=== PATIENT | male | born 1965 | race American Indian/Alaskan Native ===

== ENCOUNTER 2016-09-13 13:09 | Emergency (ER) | payer SELFPAY ==
[2016-09-13 13:25] VITALS: BP 153/100
[2016-09-13 14:10] LABS: Bacteria,Urine 1+ /HPF (Negative); Bilirubin,Urine NEG (Negative); Blood,Urine SM (Negative); Ketones,Urine NEG (Negative); Leukocyte Esterase,Urine NEG (Negative); Mucus,Urine FEW /HPF; Nitrite,Urine NEG (Negative); Protein,Urine <15 mg/dL mg/dL (Negative); Urobilinogen,Urine < 2.0 mg/dL (<2.0)
--- NOTE | 2016-09-13 14:25 | Cat Scan Report ---
FINAL REPORT PROCEDURE: CT HEAD/BRAIN WO CON TECHNIQUE: Computerized tomography of the head was performed without contrast material. HISTORY: hx. of spinocerebellar ataxia and c/o abd. pain COMPARISON: No prior studies are available for comparison. FINDINGS: Mild changes of chronic sinusitis are seen. Mastoid air cells are clear. Cerumen is seen in the right external auditory canal. No calvarial fracture is seen. Cerebral ventricles are normal in size. No acute intracranial hemorrhage or mass effect is seen. No CVA is seen. IMPRESSION: No intracranial abnormality is seen.
[2016-09-13 14:26] LABS: Basophils % (Auto) 0.5 % (0.0-1.8); Eosinophils % (Auto) 0.7 % (0.0-4.3); Hematocrit 42.3 % (35.5-45.6); Hemoglobin 14.4 gm/dl (11.8-15.2); Mean Corpuscular HGB Conc 34 % (32-34); Mean Corpuscular Hemoglobin 29 pg (28-32); Mean Corpuscular Volume 85 fl (84-94); Platelet Count 260 K/mm3 (140-440); Red Blood Count 4.95 M/mm3 (3.65-5.03); Red Cell Distribution Width 13.5 % (13.2-15.2)
[2016-09-13 14:40] LABS: Alanine Aminotransferase 41 units/L (7-56); Albumin 4.3 g/dL (3.9-5); Albumin/Globulin Ratio 1.3 %; Alkaline Phosphatase 59 units/L (35-129); Anion Gap 19 mmol/L; BUN/Creatinine Ratio 11.42; Blood Urea Nitrogen 8 mg/dL (9-20); Calcium 9.6 mg/dL (8.4-10.2); Carbon Dioxide 24 mmol/L (22-30); Chloride 101.9 mmol/L (98-107); Glucose 93 mg/dL (75-100); Lipase 25 units/L (13-60); Sodium 141 mmol/L (137-145); Total Protein 7.5 g/dL (6.3-8.2)
== END 2016-09-13 17:34 | disposition left against medical advice (07) ==
LOC: ED 13:09
DX: R10.9 Unspecified abdominal pain (principal); Z53.21 Procedure and treatment not carried out due to patient leaving prior to being seen by health care provider
CPT/HCPCS: 36415; 70450; 80053; 81001; 83690; 85025

== ENCOUNTER 2017-03-08 13:57 | Emergency (ER) | payer BC, OTHER ==
[2017-03-08 15:03] LABS: Basophils % (Auto) 0.4 % (0.0-1.8); Eosinophils % (Auto) 0.6 % (0.0-4.3); Hematocrit 41.9 % (35.5-45.6); Hemoglobin 14.3 gm/dl (11.8-15.2); Mean Corpuscular HGB Conc 34 % (32-34); Mean Corpuscular Hemoglobin 30 pg (28-32); Mean Corpuscular Volume 86 fl (84-94); Platelet Count 238 K/mm3 (140-440); Red Blood Count 4.86 M/mm3 (3.65-5.03); Red Cell Distribution Width 13.3 % (13.2-15.2); White Blood Count 7.9 K/mm3 (4.5-11.0)
[2017-03-08 15:05] LABS: Anion Gap 19 mmol/L; BUN/Creatinine Ratio 17; Blood Urea Nitrogen 12 mg/dL (9-20); Calcium 9.2 mg/dL (8.4-10.2); Carbon Dioxide 25 mmol/L (22-30); Chloride 99.9 mmol/L (98-107); Glucose 92 mg/dL (75-100); Lipase 21 units/L (13-60); Sodium 139 mmol/L (137-145)
[2017-03-08 15:32] LABS: Bilirubin,Urine NEG (Negative); Blood,Urine NEG (Negative); Ketones,Urine TR mg/dL (Negative); Leukocyte Esterase,Urine NEG (Negative); Mucus,Urine FEW /HPF; Nitrite,Urine NEG (Negative); Protein,Urine <15 mg/dL mg/dL (Negative); Urobilinogen,Urine < 2.0 mg/dL (<2.0); WBC,Urine < 1.0 /HPF (0.0-6.0)
[2017-03-08] MEDS ORDERED: NACL 0.9% 1000 ML 1,000 ML IV ONE ×2 (16:21→17:58)
--- NOTE | 2017-03-08 16:27 | Emergency Department Report ---
HPI - General Chief Complaint: Abdominal Pain Time Seen by Provider: 03/08/17 16:15 - HPI HPI: Room 25 The patient is a 51-year-old male presenting with a chief complaint of abdominal pain. The patient states for 2 weeks is diffuse abdominal tightness. The patient states she had been constipated for the 2 weeks unable to have bowel movement. Today the patient states she had a very large bowel movement "all over" his house. The patient states he still has abdominal tightness. Patient denies nausea vomiting, fever or dysuria. Location: Abdomen Duration: 2 weeks Quality: Tightness Severity: Moderate Modifying factors: [see above] Context: [see above] Mode of transportation: [not driving] ED Past Medical Hx - Past Medical History Additional medical history: Constipation, Spinal cerebellar ataxia, Anemia, Unsteady gait - Surgical History Additional Surgical History: Right leg surgery, Right hand surgery - Family History Family history: no significant - Social History Smoking Status: Never Smoker Substance Use Type: None (denies illicit drug use) - Medications Home Medications: Home Medications Medication Instructions Recorded Confirmed Last Taken Type Vitamin D (Nf) 09/13/16 09/13/16 History Docusate Sodium [Colace] 100 mg PO BID PRN #60 capsule 03/08/17 Unknown Rx Lactulose [Cephulac] 20 gm PO QDAY #90 ml 03/08/17 Unknown Rx ED Review of Systems ROS: Stated complaint: ABD PAIN Other details as noted in HPI Constitutional: denies: fever Eyes: denies: eye pain ENT: denies: throat pain Cardiovascular: denies: chest pain Gastrointestinal: abdominal pain, constipation. denies: nausea, vomiting Genitourinary: denies: dysuria Musculoskeletal: myalgia. denies: back pain Neurological: denies: headache Physical Exam - Physical Exam Vital Signs: Vital Signs 03/08/17 03/08/17 03/08/17 13:58 14:05 14:15 Temperature 98.5 F Pulse Rate 115 H 105 H 108 H Respiratory 18 10 L 19 Rate Blood Pressure 147/102 134/94 O2 Sat by Pulse 98 Oximetry 03/08/17 03/08/17 03/08/17 14:30 14:45 15:00 Temperature Pulse Rate 95 H 98 H 107 H Respiratory 17 16 21 Rate Blood Pressure 107/78 121/87 121/87 O2 Sat by Pulse 100 100 Oximetry Physical Exam: GENERAL: The patient is well-developed well-nourished male lying on stretcher not appearing to be in acute distress. [] HEENT: Normocephalic. Atraumatic. Extraocular motions are intact. Patient has moist mucous membranes. NECK: Supple. Trachea midline CHEST/LUNGS: Clear to auscultation. There is no respiratory distress noted. HEART/CARDIOVASCULAR: Regular. There is no tachycardia. There is no gallop rub or murmur. ABDOMEN: Abdomen is soft, nontender. Patient has normal bowel sounds. There is no abdominal distention. SKIN: There is no rash. There is no edema. There is no diaphoresis. NEURO: The patient is awake, alert, and oriented. The patient is cooperative. The patient has normal speech MUSCULOSKELETAL:There is no evidence of acute injury. ED Course Vital Signs 03/08/17 03/08/17 03/08/17 13:58 14:05 14:15 Temperature 98.5 F Pulse Rate 115 H 105 H 108 H Respiratory 18 10 L 19 Rate Blood Pressure 147/102 134/94 O2 Sat by Pulse 98 Oximetry 03/08/17 03/08/17 03/08/17 14:30 14:45 15:00 Temperature Pulse Rate 95 H 98 H 107 H Respiratory 17 16 21 Rate Blood Pressure 107/78 121/87 121/87 O2 Sat by Pulse 100 100 Oximetry ED Medical Decision Making - Lab Data Result diagrams: 03/08/17 14:34 03/08/17 14:34 Laboratory Tests 03/08/17 03/08/17 03/08/17 14:34 14:34 15:10 WBC 7.9 RBC 4.86 Hgb 14.3 Hct 41.9 MCV 86 MCH 30 MCHC 34 RDW 13.3 Plt Count 238 Lymph % (Auto) 15.9 [place] % (Auto) 6.8 Eos % (Auto) 0.6 Baso % (Auto) 0.4 Lymph # 1.2 [place] # 0.5 Eos # 0.0 Baso # 0.0 Seg Neutrophils % 76.3 H Seg Neutrophils # 6.0 Sodium 139 Potassium 5.0 Chloride 99.9 Carbon Dioxide 25 Anion Gap 19 BUN 12 Creatinine 0.7 L Estimated GFR > 60 BUN/Creatinine Ratio 17 Glucose 92 Calcium 9.2 Lipase 21 Urine Color Yellow Urine Turbidity Clear Urine pH 5.0 Ur Specific [place] 1.020 Urine Protein <15 mg/dl Urine Glucose (UA) 50 Urine Ketones Tr Urine Blood Neg Urine Nitrite Neg Urine Bilirubin Neg Urine Urobilinogen < 2.0 Ur Leukocyte Esterase Neg Urine WBC (Auto) < 1.0 Urine RBC (Auto) 2.0 U Epithel Cells (Auto) < 1.0 Urine Mucus Few - Radiology Data Radiology results: report reviewed (CT abdomen and pelvis), image reviewed (CT abdomen and pelvis) FINAL REPORT EXAM: CT ABDOMEN PELVIS W CON HISTORY: diffuse abdominal pain, obstipation TECHNIQUE: Axial images were performed from the lung bases to the pubic symphysis following IV contrast administration. Multiplanar reformats are performed on the acquisition scanner. Total exam DLP 786.76 mGy-cm Comparison: None FINDINGS: [facility]n Family [facility] film demonstrates air throughout the colon and a large stool ball in the sigmoid with air ball in the rectum. There is a right femoral dagoberto. Clear lung bases. Normal enhancement and appearance of the liver, spleen, pancreas, gallbladder, and bilateral kidneys. There is a cyst of the left kidney lower pole intra cortical location. Neither adrenal gland is identified. There is normal enhancement of the aorta and mesenteric vessels. Urinary bladder is moderately distended. Prostate is not enlarged. There is significant sigmoid stool. There is moderate diffuse fecal retention with air-filled transverse colon. The appendix is not identified. There is normal excretion of contrast on the delayed phase images with normal bilateral ureteral jets. There is what appears to be fluid density around the anterior aorta in the lower chest which is not seen on the delayed phase images and this may be artifactual with collapsed adjacent diaphragm/stomach. There is mild marginal osteophytic change upper lumbar spine. There is normal enhancement of the mesenteric vessels. There is no free air or free fluid. IMPRESSION: Patient appears very constipated. There is large amount of stool in the sigmoid but the rectum is actually collapsed. No definite obstructing lesion is identified. Left lower pole renal cortical cyst. Adrenal glands are not identified due to lack of patient retroperitoneal fat. There is a fluid density along the anterior margin of the upper abdominal/lower thoracic aorta which is not seen on the delayed phase images and presumably reflects collapse mucosa of the stomach and the distal esophagus. The appendix is not definitely seen. There is no evidence for inflammation/bowel wall thickening. Transcribed By: SUSAN Dictated By: NITO HIGGINBOTHAM Electronically Authenticated By: NITO HIGGINBOTHAM Signed Date/Time: 03/08/171313 DD/ 13 TD/TT: 03/08/171313 - Differential Diagnosis partial small bowel obstruction, enteritis, colitis Critical care attestation.: If time is entered above; I have spent that time in minutes in the direct care of this critically ill patient, excluding procedure time. ED Disposition Clinical Impression: Abdominal pain, Constipation Disposition: - TO HOME OR SELFCARE Is pt being admited?: No Does the pt Need Aspirin: No Condition: Stable Instructions: Constipation (ED) Additional Instructions: Return to the emergency department immediately should you develop worsening symptoms, fever, inability to tolerate food or liquid or any other concerns. Prescriptions: Docusate Sodium [Colace] 100 mg PO BID PRN #60 capsule PRN Reason: Constipation Lactulose [Cephulac] 20 gm PO QDAY #90 ml Referrals: PRIMARY CARE, [Primary Care Provider] - 3-5 Days GIOVANI GALE MD [Staff Physician] - 3-5 Days (Dr. Gale is a sourcing engineer. Please follow-up with him for further evaluation) RUFINO SALAZAR MD [Staff Physician] - 3-5 Days (Dr. Salazar is a urologist. Please follow up with him for further evaluation of your difficulty urinating) Time of Disposition: 18:37
--- NOTE | 2017-03-08 17:17 | Cat Scan Report ---
FINAL REPORT EXAM: CT ABDOMEN PELVIS W CON HISTORY: diffuse abdominal pain, obstipation TECHNIQUE: Axial images were performed from the lung bases to the pubic symphysis following IV contrast administration. Multiplanar reformats are performed on the acquisition scanner. Total exam DLP 786.76 mGy-cm Comparison: None FINDINGS: [employer] film demonstrates air throughout the colon and a large stool ball in the sigmoid with air ball in the rectum. There is a right femoral dagoberto. Clear lung bases. Normal enhancement and appearance of the liver, spleen, pancreas, gallbladder, and bilateral kidneys. There is a cyst of the left kidney lower pole intra cortical location. Neither adrenal gland is identified. There is normal enhancement of the aorta and mesenteric vessels. Urinary bladder is moderately distended. Prostate is not enlarged. There is significant sigmoid stool. There is moderate diffuse fecal retention with air-filled transverse colon. The appendix is not identified. There is normal excretion of contrast on the delayed phase images with normal bilateral ureteral jets. There is what appears to be fluid density around the anterior aorta in the lower chest which is not seen on the delayed phase images and this may be artifactual with collapsed adjacent diaphragm/stomach. There is mild marginal osteophytic change upper lumbar spine. There is normal enhancement of the mesenteric vessels. There is no free air or free fluid. IMPRESSION: Patient appears very constipated. There is large amount of stool in the sigmoid but the rectum is actually collapsed. No definite obstructing lesion is identified. Left lower pole renal cortical cyst. Adrenal glands are not identified due to lack of patient retroperitoneal fat. There is a fluid density along the anterior margin of the upper abdominal/lower thoracic aorta which is not seen on the delayed phase images and presumably reflects collapse mucosa of the stomach and the distal esophagus. The appendix is not definitely seen. There is no evidence for inflammation/bowel wall thickening.
[2017-03-08 18:08] VITALS: BP 121/78
[2017-03-08] MEDS ORDERED: CEPHULAC PO ONE (18:44)
[2017-03-08] MEDS ORDERED: CEPHULAC ONE (18:46)
== END 2017-03-08 19:26 | disposition home or self-care (01) ==
LOC: ED 13:57
DX: R10.84 Generalized abdominal pain (principal); K59.00 Constipation, unspecified; Z86.2 Personal history of diseases of the blood and blood-forming organs and certain disorders involving the immune mechanism
CPT/HCPCS: 36415; 74177; 80048; 81001; 83690; 85025; 87045; 96360; 96361; 99284; J7030; Q9967